=== PATIENT | female | born 1975 | race Caucasian/White ===

== ENCOUNTER → 2025-04-15 15:45 | Outpatient (BNVA) | payer OTHER, SELFPAY | PROVIDERS: Visit Provider Nurse Practitioner Women's Health | DX: N93.9 Abnormal uterine and vaginal bleeding, unspecified (principal); R53.83 Other fatigue | CPT/HCPCS: 80053; 82306; 82607; 82728; 82746; 83036; 83540; 84146; 84439; 84443; 85025; 87624 ==

== ENCOUNTER → 2025-04-16 13:28 | Outpatient (BNVA) | payer OTHER, SELFPAY | PROVIDERS: Visit Provider Nurse Practitioner Women's Health | DX: N92.6 Irregular menstruation, unspecified (principal) | CPT/HCPCS: 76830 ==

== ENCOUNTER 2025-04-17 08:00 | Oncology outpatient (recurring) (ONCR) | payer OTHER, SELFPAY ==
[2025-04-17] VITALS (7 sets, daily range): BP systolic 106–135; BP diastolic 68–81; PULSE 76–90; RESP 16–18; TEMP 36.4–37.1; O2SAT 95–98
[2025-04-17 08:50] LABS: Hematocrit 21.4 % (36-47)
[2025-04-17] MEDS: sodium chloride 0.9% 250 mL Bag IV (09:24)
== END 2025-05-12 23:59 | disposition home or self-care (01) ==
PROVIDERS: Visit Provider Obstetrics & Gynecology
DX: N93.9 Abnormal uterine and vaginal bleeding, unspecified (principal); Z53.9 Procedure and treatment not carried out, unspecified reason
CPT/HCPCS: 36415; 36430; 85014; 85018; 86850; 86900; 86920; 88305; J7050; P9016

== ENCOUNTER → 2025-05-12 12:55 | Outpatient (BNVA) | payer OTHER, SELFPAY | PROVIDERS: Visit Provider Obstetrics & Gynecology | DX: N93.9 Abnormal uterine and vaginal bleeding, unspecified (principal) | CPT/HCPCS: 85025 ==

== ENCOUNTER → 2025-05-20 12:26 | Outpatient (BNVA) | payer OTHER, SELFPAY | PROVIDERS: Visit Provider Obstetrics & Gynecology | DX: N93.9 Abnormal uterine and vaginal bleeding, unspecified (principal) | CPT/HCPCS: 85025 ==

== ENCOUNTER 2025-05-22 07:30 | Oncology outpatient (recurring) (ONCR) | payer OTHER, SELFPAY ==
[2025-05-22] VITALS (11 sets, daily range): BP systolic 104–133; BP diastolic 70–88; PULSE 63–86; RESP 16–18; TEMP 35.9–36.7; O2SAT 95–99
[2025-05-22 08:38] LABS: Hematocrit 27.7 % (36-47); Hemoglobin 7.90 g/dL (11.27-16.99); Mean Corpuscular HGB Conc 28.5 g/dL (30-55); Mean Corpuscular Hemoglobin 19.9 pg (27-33); Mean Corpuscular Volume 69.9 fl (85-98); Nucleated Red Blood Cells % 0 %; Platelet Count 376 10^3/cmm (157-399); Red Blood Count 3.96 10^6/uL (3.85-5.65); White Blood Count 3.92 10^3/uL (3.29-11.43)
== END 2025-06-12 23:59 | disposition home or self-care (01) ==
LOC: ONCMED 07:31
PROVIDERS: Visit Provider Obstetrics & Gynecology
DX: N93.9 Abnormal uterine and vaginal bleeding, unspecified (principal); Z79.899 Other long term (current) drug therapy
CPT/HCPCS: 36430; 85025; 86850; 86900; 86920; P9016